=== PATIENT | male | born 1975 | race Caucasian/White ===

== ENCOUNTER → 2022-04-29 11:55 | Outpatient (CLI) | payer BC, SELFPAY ==
--- NOTE | 2022-04-29 12:15 | DI.RAD_ITS ---
Exam(s) XR HAND RT COMPLETE EXAM: XR HAND RT COMPLETE CLINICAL HISTORY: punching injury, right hand 4th, 5th metacarpal. TECHNIQUE: 2D digital imaging was performed. COMPARISON: No exams were available for comparison FINDINGS: 3 views There is a mildly displaced spiral fracture in the proximal half of the 5th metacarpal bone. No osse ous lesions. No radiopaque foreign body. Bone density is normal. IMPRESSION: There is an acute appearing spiral fracture in the proximal half of the 5th metacarpal DATA REPOSITORY: RADIATION DOSE DELIVERED:
--- NOTE | 2022-04-29 12:44 | DI.VRAD_ITS ---
PROCEDURE INFORMATION: Exam: XR Right Hand Exam date and time: 04/29/2022 12:31 PM Age: 46 years old Clinical indication: Other: Punching injury, right hand 4th/5th mcp TECHNIQUE: Imaging protocol: XR Right hand. Views: 3 or more views. COMPARISON: No relevant prior studies available. FINDINGS: Bones/joints: Acute minimally displaced spiral fracture of proximal 5th metacarpal. No dislocation. Soft tissues: No significant soft tissue swelling. IMPRESSION: Acute proximal 5th metacarpal fracture. Dictated and Authenticated by: Merari Jones MD. Ordering:CARIDAD Wallis MD
== END ==
PROVIDERS: Visit Provider Physician Assistant
DX: S69.91XA Unspecified injury of right wrist, hand and finger(s), initial encounter; S62.326A Displaced fracture of shaft of fifth metacarpal bone, right hand, initial encounter for closed fracture
CPT/HCPCS: 73130